=== PATIENT | male | born 1995 | race Two or more races ===

== ENCOUNTER 2017-12-15 19:08 | Emergency (ER) | payer OTHER ==
[~2017-12-15 19:08] MED LIST: ALBU2.5V2 IH; ALBU6.7H IH; AZIT250T14 PO; FLUT1DIS3 IH; PRED20TA PO
[2017-12-15 19:55] VITALS: BP 149/97
--- NOTE | 2017-12-15 22:10 | ER.PDOC ---
General Chief Complaint: Skin Rash/Abscess Stated Complaint: RASH Time seen by MD: 22:05 Source: patient Exam Limitations: no limitations History of Present Illness Initial Comments Skin rash both feet and right buttock for 1 week Severity: moderate Quality: itchy Allergies: Coded Allergies: No Known Allergies (Unverified , 06/15/16) Home Meds Active Scripts Fluticasone/Salmeterol (ADVAIR 250-50 DISKUS) 1 Each Disk.w.dev, 1 PUFF IH BID, #1 INHALER 5 Refills Prov:LESLEY DELGADO MD 06/20/16 Prednisone (PREDNISONE) 20 Mg Tablet, 20 MG PO DAILY PRN for WHEEZING, #10 TAB 0 Refills Prov:LESLEY DELGADO MD 06/20/16 Azithromycin (AZITHROMYCIN) 250 Mg Tablet, 250 MG PO DAILY, #3 TABLET 0 Refills Prov:LESLEY DELGADO MD 06/20/16 Reported Medications Albuterol Sulfate (PROVENTIL HFA) 6.7 Gm Hfa.aer.ad, 2 PUFF IH QID, #1 INHALER 3 Refills 06/19/16 Albuterol Sulfate (ALBUTEROL SULFATE) 2.5 Mg/3 Ml Vial.neb, 2.5 MG IH PRN PRN for SHORTNESS OF BREATH 06/19/16 Past Medical History Surgical History: no surgical history Constitutional: no symptoms reported EENTM: no symptoms reported Respiratory: no symptoms reported Cardiovascular: no symptoms reported Gastrointestinal: no symptoms reported Skin: see HPI All Other Systems: Reviewed and Negative Physical Exam General Appearance: alert, no distress Skin: skin rash Location: other (both feet and right gluteus) Character: macular, other (rash on right gluteus has wounds from itching with mild warmth) EENT: eyes nml inspection, lips/gums nml, pharynx nml Neck: trachea midline, no swelling Respiratory: no resp. distress, breath sounds nml CVS: reg. rate & rhythm, heart sounds nml Abdomen: non-tender, no organomegaly NEURO/PSYCH: oriented x 3, CN's nml as tested, motor nml, sensation nml, mood/ affect nml Departure Time of Disposition: 22:08 Disposition: 01 HOME, SELF-CARE Impression: Primary Impression: Dermatitis Additional Impression: Soft tissue infection Condition: Stable Referrals: PCP,UNKNOWN (PCP) PRIMARY CARE PROVIDER Additional Instructions: 1% Hydrocortisone cream Prednisone Hydroxyzine Keflex F/U with your PCP next week Duration or Time Spent with Pa: 30 mins JEANNETTE,SELENA Franco MD December 15, 2017 22:10
[2017-12-15 22:28] VITALS: BP_SYST 115; BP_SYST 149; BP_DIAS 84; BP_DIAS 97
== END 2017-12-15 22:24 | disposition home or self-care (01) ==
LOC: ER 19:08
DX: L30.9 Dermatitis, unspecified (principal); Z79.899 Other long term (current) drug therapy
CPT/HCPCS: 99283